=== PATIENT | male | born 1965 | race Caucasian/White ===

== ENCOUNTER 2022-05-11 22:43 | Emergency (ER) | payer OTHER ==
[2022-05-11 22:52] VITALS: BP 120/78; PULSE 75; TEMP 98; BMI 22.7
[2022-05-11] MEDS ORDERED: KETOROLAC TROMETHAMINE 30 MG/1 ML VIAL IM ONE (23:04)
[2022-05-11] MEDS ORDERED: KETOROLAC TROMETHAMINE 30 MG/1 ML VIAL ONE (23:09)
== END 2022-05-12 00:50 | disposition home or self-care (01) ==
LOC: JER 22:43
PROC: 3E0233Z Introduction of Anti-inflammatory into Muscle, Percutaneous Approach (ICD-10-PCS; principal; 2022-05-11)
DX: S86.911A Strain of unspecified muscle(s) and tendon(s) at lower leg level, right leg, initial encounter (principal); X50.0XXA Overexertion from strenuous movement or load, initial encounter
CPT/HCPCS: 93971-TC; 99284-25

== ENCOUNTER 2024-04-18 12:09 | Emergency (ER) | payer OTHER ==
[2024-04-18 12:35] VITALS: BMI 18.8
[2024-04-18] MEDS ORDERED: ACETAMINOPHEN INJECTION 100 ML IVPB ONE (13:27)
[2024-04-18] MEDS ORDERED: KETOROLAC TROMETHAMINE 15 MG/ML VIAL ONE (13:27)
[2024-04-18 13:31] LABS: BASO % 0.2 % (0-2.0); EOS % 0.9 % (0-4.5); HEMATOCRIT 43.3 % (35.4-49); HEMOGLOBIN 14.6 GM/dL (11.7-16.9); LYMPH % 24.5 % (8-40); MCH 28.7 pg (25.7-33.7); MCHC 33.7 g/dl (32.0-35.9); MEAN CELL VOLUME 85.2 fl (80-96); MEAN PLT VOLUME 7.7 fl (7.5-11.1); NEUT % 63.4 % (42.8-82.8); PLATELET COUNT 235 10^3/uL (134-434); RBC 5.09 M/mm3 (4.00-5.60); RDW 15.1 % (11.9-15.9); WHITE BLOOD COUNT 8.8 K/mm3 (4.0-10.0)
[2024-04-18] MEDS: ACETAMINOPHEN 1000 MG/100 ML BAG IVPB ONE (13:34)
[2024-04-18] MEDS: KETOROLAC TROMETHAMINE 15 MG/ML VIAL IVPUSH ONE (13:35)
[2024-04-18 13:39] LABS: INR 1.04 (0.83-1.09); PROTHROMBIN TIME (PATIENT) 11.9 SEC (9.7-13.0)
[2024-04-18 13:42] LABS: ACTIVATED PTT 33.1 SECONDS (25.2-36.5)
[2024-04-18 13:53] LABS: POTASSIUM 4.2 mmol/L (3.5-5.1)
[2024-04-18 13:54] LABS: ALBUMIN 3.9 g/dl (3.4-5.0); BLOOD UREA NITROGEN 16.6 mg/dL (7-18); CALCIUM 9.4 mg/dL (8.5-10.1)
[2024-04-18 13:59] LABS: BILIRUBIN,TOTAL 0.6 mg/dL (0.2-1)
[2024-04-18 14:01] LABS: CREATININE 0.7 mg/dL (0.55-1.3)
[2024-04-18 15:32] VITALS: BP 123/77; PULSE 50; RESP 18; TEMP 98
== END 2024-04-18 16:42 | disposition home or self-care (01) ==
LOC: JER 12:09
PROC: 3E033NZ Introduction of Analgesics, Hypnotics, Sedatives into Peripheral Vein, Percutaneous Approach (ICD-10-PCS; principal; 2024-04-18)
PROC: 3E0333Z Introduction of Anti-inflammatory into Peripheral Vein, Percutaneous Approach (ICD-10-PCS; 2024-04-18)
DX: R07.89 Other chest pain (principal); X50.0XXA Overexertion from strenuous movement or load, initial encounter; Y99.0 Civilian activity done for income or pay; Z20.822 Contact with and (suspected) exposure to COVID-19
CPT/HCPCS: 0241U-QW; 36415; 71046-TC-FY; 80053; 84484; 85025; 85610; 85730; 93005; 93010; 99285-25; J0131

== ENCOUNTER 2024-07-17 10:26 | Emergency (ER) | payer OTHER ==
[2024-07-17 11:01] VITALS: BP 123/78; PULSE 85; RESP 18; TEMP 97.8; BMI 24.2
[2024-07-17] MEDS ORDERED: FLUORESCEIN NA 1 EA STRIP ONE (15:08)
[2024-07-17] MEDS ORDERED: TETRACAINE 0.5% OPHTH SOLN 2 ML BOTTLE ONE (15:08)
== END 2024-07-17 15:55 | disposition home or self-care (01) ==
LOC: JERFT 10:26
DX: H11.001 Unspecified pterygium of right eye (principal); H57.11 Ocular pain, right eye
CPT/HCPCS: 99283-25